=== PATIENT | female | born 1985 | race African-American/Black ===

== ENCOUNTER 2016-08-27 23:00 | Emergency (ER) | payer MEDICAID ==
[~2016-08-27] VITALS: Ht 167.6 cm; Wt 104.3 kg
[2016-08-27 23:10] VITALS: BP 131/69
== END 2016-08-27 23:30 | disposition left against medical advice (07) ==
LOC: ER 23:00
DX: R56.9 Unspecified convulsions (principal); G43.909 Migraine, unspecified, not intractable, without status migrainosus; F17.200 Nicotine dependence, unspecified, uncomplicated; Z53.21 Procedure and treatment not carried out due to patient leaving prior to being seen by health care provider